=== PATIENT | male | born 1965 | race Asian ===

== ENCOUNTER 2019-03-09 09:38 | Day surgery (SDC) | payer OTHER ==
[2019-03-09] MEDS ORDERED: LIDOCAINE 4% SOLUTION 50 ML BTL (10:21)
[2019-03-09] MEDS ORDERED: FENTAnyl 50 MCG/ML VIAL (11:18)
[2019-03-09] MEDS ORDERED: MIDAZOLAM 1 MG/ML 2 ML INJ ×2 (11:25→11:26)
== END 2019-03-09 12:47 | disposition home or self-care (01) ==
LOC: GIL 09:38
DX: R19.5 Other fecal abnormalities (principal); K64.1 Second degree hemorrhoids; K29.50 Unspecified chronic gastritis without bleeding; K29.90 Gastroduodenitis, unspecified, without bleeding
CPT/HCPCS: 43239; 88305; 88312